=== PATIENT | female | born 1985 | race Caucasian/White ===

== ENCOUNTER → 2019-05-16 08:28 | Outpatient (CLI) | payer SELFPAY ==
--- NOTE | 2019-05-16 08:39 | DI.RAD.S_ITS ---
PROCEDURE: XR CHEST 2V INDICATIONS: cough TECHNIQUE: 2 views of the chest were acquired. COMPARISON: None. FINDINGS: Surgical changes and devices: None. Lungs and pleura: There is a 30 mm AP x 32 mm transverse mass like opacity in the right perihilar region. No pleural effusions or pneumothorax. Mediastinum: Mediastinal contours are normal. Heart size is normal. Bones and chest wall: No suspicious bony abnormalities. Soft tissues appear unremarkable. IMPRESSION: Masslike opacity in the right perihilar region as above. No priors are available for comparison. This could represent a focal area of pneumonia. However, recommend interval followup to document resolution after appropriate therapy and exclude presence of underlying noninfectious/noninflammatory, potentially neoplastic mass. CT chest may be obtained as clinically indicated for further evaluation. Dictated by: Merced Blum M.D. on 05/16/2019 at 9:08 Approved by: Merced Blum M.D. on 05/16/2019 at 9:15
== END ==
PROVIDERS: Visit Provider Physician Assistant
DX: R05 Cough (principal)
CPT/HCPCS: 71046